=== PATIENT | female | born 1975 | race Native Hawaiian/Other Pacific Islander ===

== ENCOUNTER 2017-11-12 18:30 | Emergency (ER) | payer OTHER ==
[2017-11-12 18:40] VITALS: BP 125/76; PULSE 70; RESP 16; TEMP 97.6; O2SAT 99
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
== END 2017-11-12 19:50 | disposition home or self-care (01) ==
LOC: C.ER 18:30
DX: S16.1XXA Strain of muscle, fascia and tendon at neck level, initial encounter (principal); V49.9XXA Car occupant (driver) (passenger) injured in unspecified traffic accident, initial encounter